=== PATIENT | male | born 1970 | race Caucasian/White ===

== ENCOUNTER 2018-09-11 10:45 | Emergency (ER) | payer SELFPAY ==
--- NOTE | 2018-09-11 10:56 | ER Report ---
History and Physical Time Seen By MD: 10:56 HPI/ROS CHIEF COMPLAINT: Shortness of breath HISTORY OF PRESENT ILLNESS: This is a 47-year-old male presents to the emergency department for shortness of breath. 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 Since moving here August 20, he's had increased shortness of breath not necessarily exertional, it is continuos however does have increased shortness of breath with ambulation. Also states that he had flulike symptoms last week. No fevers or chills today, no nausea or vomiting. Denies chest pain. No rashes. He does state that sometimes when he staking a deep breath he becomes lightheaded and sees spots but that quickly resolves, no headaches. REVIEW OF SYSTEMS: Constitutional: No fever, no chills. Eyes: No discharge. ENT: No sore throat. Cardiovascular: No chest pain, no palpitations. Respiratory: As above. Gastrointestinal: No abdominal pain, no vomiting. Genitourinary: No hematuria. Musculoskeletal: No back pain. Skin: No rashes. Neurological: As above. Allergies: Coded Allergies: Penicillins (Verified Allergy, Severe, HIVES, 09/11/18) phenobarbital (Verified Allergy, Severe, ANAPHYLAXIS, 09/11/18) Home Meds Active Scripts Albuterol Sulfate 90 Mcg/Act (PROAIR HFA 90 MCG/ACT) 8.5 Gm Hfa.aer.ad, 1-2 PUFF IH 3-4XD, #1 INHALER 0 Refills Prov:BRENNAN TRACY [facility] REGISTERED NURSE- 09/11/18 Past Medical/Surgical History The patient has a past medical and surgical history of urinary tract infection, diverticulitis. Reviewed Nurses Notes: Yes Constitutional Vital Sign - Last 24 Hours 09/11/18 09/11/18 09/11/18 09/11/18 10:45 11:02 11:06 11:15 Temp 98.3 Pulse 71 100 73 Resp 12 16 19 B/P (MAP) 144/94 (111) 144/94 126/92 (103) Pulse Ox 93 98 93 O2 Delivery Room Air Room Air Room Air 09/11/18 09/11/18 09/11/18 09/11/18 11:31 11:45 12:00 12:15 Pulse 67 71 Resp 12 16 B/P (MAP) 127/92 (104) 123/84 (97) 124/86 (99) 127/85 (99) Pulse Ox 94 94 O2 Delivery Room Air Room Air 09/11/18 09/11/18 09/11/18 09/11/18 12:45 12:48 12:48 12:50 Pulse 76 76 Resp 16 16 B/P (MAP) 124/82 (96) Pulse Ox 92 100 O2 Delivery Room Air Room Air 09/11/18 09/11/18 12:55 13:00 Pulse 83 Resp 16 B/P (MAP) 117/79 (92) Physical Exam General Appearance: The patient is alert, has no immediate need for airway protection and no signs of toxicity. Eyes: Pupils equal and round no pallor or injection. ENT, Mouth: Mucous membranes are moist. Respiratory: There are no retractions, lungs are clear to auscultation. Cardiovascular: Regular rate and rhythm, no murmurs, clicks or rubs. Gastrointestinal: Abdomen is soft and non tender, no masses, bowel sounds normal. Neurological: Alert and oriented 4. Moving all extremities. Following all commands. No focal neuro deficits. Skin: Warm and dry, no rashes. Musculoskeletal: Neck is supple non tender. Extremities are nontender, nonswollen and have full range of motion. DIFFERENTIAL DIAGNOSIS: After history and physical exam differential diagnosis was considered for shortness of breath including but not limited to pulmonary infectious process, COPD, asthma, pulmonary embolus and congestive heart failure. Medical Decision Making Data Points Result Diagram: 09/11/18 1133 09/11/18 1133 Laboratory Hematology Test 09/11/18 11:33 Red Blood Count 5.64 M/uL (4.00-5.60) Mean Corpuscular Volume 93.2 fL (80.0-96.0) Mean Corpuscular Hemoglobin 31.4 pg (26.0-33.0) Mean Corpuscular Hemoglobin Concent 33.7 g/dL (32.0-36.0) Red Cell Distribution Width 13.3 % (11.5-14.5) Mean Platelet Volume 7.8 fL (7.2-11.1) Neutrophils (%) (Auto) 67.7 % (39.4-72.5) Lymphocytes (%) (Auto) 19.0 % (17.6-49.6) Monocytes (%) (Auto) 11.4 % (4.1-12.4) Eosinophils (%) (Auto) 1.1 % (0.4-6.7) Basophils (%) (Auto) 0.8 % (0.3-1.4) Nucleated RBC Relative Count (auto) 0.0 /100WBC Neutrophils # (Auto) 5.7 K/uL (2.0-7.4) Lymphocytes # (Auto) 1.6 K/uL (1.3-3.6) Monocytes # (Auto) 1.0 K/uL (0.3-1.0) Eosinophils # (Auto) 0.1 K/uL (0.0-0.5) Basophils # (Auto) 0.1 K/uL (0.0-0.1) Nucleated RBC Absolute Count (auto) 0.00 K/uL D-Dimer Quantitative (PE/DVT) < 0.27 ug/ml (0-0.50) Sodium Level 138 mmol/L (137-145) Potassium Level 5.2 mmol/L (3.5-5.0) Chloride Level 106 mmol/L (98-107) Carbon Dioxide Level 25 mmol/L (22-30) Blood Urea Nitrogen 9 mg/dl (9-21) Creatinine 0.80 mg/dl (0.66-1.25) Glomerular Filtration Rate Calc > 60.0 Random Glucose 103 mg/dl (75-110) Calcium Level 9.6 mg/dl (8.4-10.2) Total Bilirubin 1.5 mg/dl (0.2-1.3) Aspartate Amino Transf (AST/SGOT) 49 U/L (0-35) Alanine Aminotransferase (ALT/SGPT) 66 U/L (0-56) Alkaline Phosphatase 69 U/L (0-126) Troponin I < 0.012 ng/ml Total Protein 8.6 g/dl (6.3-8.2) Albumin 4.8 g/dl (3.5-5.0) Chemistry Test 09/11/18 11:33 White Blood Count 8.4 k/uL (4.5-11.0) Red Blood Count 5.64 M/uL (4.00-5.60) Hemoglobin 17.7 g/dL (14.0-18.0) Hematocrit 52.6 % (42.0-52.0) Mean Corpuscular Volume 93.2 fL (80.0-96.0) Mean Corpuscular Hemoglobin 31.4 pg (26.0-33.0) Mean Corpuscular Hemoglobin Concent 33.7 g/dL (32.0-36.0) Red Cell Distribution Width 13.3 % (11.5-14.5) Platelet Count 305 K/uL (150-450) Mean Platelet Volume 7.8 fL (7.2-11.1) Neutrophils (%) (Auto) 67.7 % (39.4-72.5) Lymphocytes (%) (Auto) 19.0 % (17.6-49.6) Monocytes (%) (Auto) 11.4 % (4.1-12.4) Eosinophils (%) (Auto) 1.1 % (0.4-6.7) Basophils (%) (Auto) 0.8 % (0.3-1.4) Nucleated RBC Relative Count (auto) 0.0 /100WBC Neutrophils # (Auto) 5.7 K/uL (2.0-7.4) Lymphocytes # (Auto) 1.6 K/uL (1.3-3.6) Monocytes # (Auto) 1.0 K/uL (0.3-1.0) Eosinophils # (Auto) 0.1 K/uL (0.0-0.5) Basophils # (Auto) 0.1 K/uL (0.0-0.1) Nucleated RBC Absolute Count (auto) 0.00 K/uL D-Dimer Quantitative (PE/DVT) < 0.27 ug/ml (0-0.50) Glomerular Filtration Rate Calc > 60.0 Calcium Level 9.6 mg/dl (8.4-10.2) Total Bilirubin 1.5 mg/dl (0.2-1.3) Aspartate Amino Transf (AST/SGOT) 49 U/L (0-35) Alanine Aminotransferase (ALT/SGPT) 66 U/L (0-56) Alkaline Phosphatase 69 U/L (0-126) Troponin I < 0.012 ng/ml Total Protein 8.6 g/dl (6.3-8.2) Albumin 4.8 g/dl (3.5-5.0) Coagulation Test 09/11/18 11:33 D-Dimer Quantitative (PE/DVT) < 0.27 ug/ml EKG/Imaging EKG Interpretation 12 lead EKG: Time of EKG 114. Rhythm: Normal sinus rhythm, ventricular rate 71 bpm. [place]: normal QRS: normal ST segments: No ST depression or elevation identified. No previous EKGs for comparison. Imaging PATIENT NAME: Herbert Krueger : 1970 MR: [id number] V: [id number] EXAM DATE: ORDERING PHYSICIAN: BRENNAN TRACY TECHNOLOGIST: Location: [facility] - [place] Patient: Herbert Krueger : 1970 Visit/Account:[id number] Date of Sevice: 09/11/2018 CHEST PA LAT Indication: RESP DISTRESS Comparison: None. Findings: Lungs: Clear. Mediastinum/pulmonary vasculature: Heart size and pulmonary vasculature are normal. Bones/soft tissues: Normal. IMPRESSION: Clear lungs. Report Dictated By: Hasmukh Cote at 09/11/2018 12:11 PM Report E-Signed By: Hasmukh Cote at 09/11/2018 12:12 PM WSN:[id number] ED Course/Re-evaluation Clinical Indication for ER IV: Hydration, IV Access ED Course The patient was admitted to room. A history and physical were obtained. Differential diagnoses were considered. An IV was started. A CBC, CMP and troponin were obtained. A 1 L normal saline bolus was given. One albuterol nebulizer was given with relief of symptoms.CBC unremarkable, chemistries showing potassium 5.2, total bilirubin 1.5, AST 49, ALT 66, negative troponin, negative d-dimer. EKG showing normal sinus rhythm. Two-view chest x-ray negative for any acute cardiopulmonary process. I reviewed the laboratory studies and x- ray results with the patient. I did tell him that this is likely related to altitude sickness and slowly increase his activity over the next several months given self time to acclimate to this elevation. I also encouraged the patient to establish with a primary care provider and reevaluate his symptoms within 2 weeks. The patient had no other questions or concerns at this time and was disch arged home. The patient was in agreement with this plan of care. I did send the patient home with albuterol inhaler prescription. Decision to Disposition Date: Sep 11, 2018 Decision to Disposition Time: 13:02 Depart Departure Latest Vital Signs Vital Signs Date Time Temp Pulse Resp B/P (MAP) Pulse Ox O2 Delivery O2 Flow Rate FiO2 09/11/18 13:00 117/79 (92) 09/11/18 12:55 83 16 09/11/18 12:50 100 Room Air 09/11/18 11:06 98.3 Impression: Primary Impression: Shortness of breath associated with high altitude Condition: Improved Disposition: HOME OR SELF-CARE Referrals: PALLAVI HOBSON MD 2 Weeks New Scripts Albuterol Sulfate 90 Mcg/Act (PROAIR HFA 90 MCG/ACT) 8.5 Gm Hfa.aer.ad 1-2 PUFF IH 3-4XD, #1 INHALER 0 Refills Prov: BRENNAN TRACY-ROXANNE 09/11/18 Patient Instructions: Dyspnea (ED), Mountain Sickness (ED) Additional Instructions: No concerning findings on her EKG, chest x-ray or blood work today. I do believe that which were experiencing is a mild case of altitude sickness. Be sure to drink plenty of fluids as she do have was called incidental fluid loss if this elevation. Get plenty of rest. Give your body several months to acclimate to this elevation. Please establish with a primary care provider for reevaluation within the next 2 weeks. Return to the emergency department for any other concerns or worsening symptoms. Problem Qualifiers Primary Impression: Shortness of breath associated with high altitude Encounter type: initial encounter Qualified Codes: T70.29XA - Other effects of high altitude, initial encounter BRENNAN TRACY-BC Sep 11, 2018 10:56
[2018-09-11] MEDS ORDERED: NS(*) 0.9% 1000 ML BAG 1,000 ML IV ONE (11:08)
[2018-09-11 11:42] LABS: PLATELET COUNT, AUTOMATED 305 K/uL (150-450)
--- NOTE | 2018-09-11 12:16 | RADIOLOGY IMAGING REPORT ---
FACILITY: [facility] - [place] PATIENT NAME: Herbert Krueger : 1970 MR: [id number] V: [id number] EXAM DATE: ORDERING PHYSICIAN: BRENNAN TRACY TECHNOLOGIST: Location: [facility] Patient: Herbert Krueger : 1970 Visit/Account:[id number] Date of Sevice: 09/11/2018 CHEST PA LAT Indication: RESP DISTRESS Comparison: None. Findings: Lungs: Clear. Mediastinum/pulmonary vasculature: Heart size and pulmonary vasculature are normal. Bones/soft tissues: Normal. IMPRESSION: Clear lungs. Report Dictated By: Hasmukh Cote at 09/11/2018 12:11 PM Report E-Signed By: Hasmukh Cote at 09/11/2018 12:12 PM WSN:[id number]
[2018-09-11] MEDS ORDERED: ALBUTEROL 2.5 MG/3 ML NEB NEB ONE (12:30)
--- NOTE | 2018-09-11 12:59 | EKG ---
FACILITY: [facility] - [place] PATIENT NAME: POLLY MUKHERJEE : [id number] MR: [id number] V: [id number] EXAM DATE: ORDERING PHYSICIAN: BRENNAN TRACY TECHNOLOGIST: ABILIO Test Reason : SOB Blood Pressure : / mmHG Vent. Rate : 071 BPM Atrial Rate : 071 BPM P-R Int : 162 ms QRS Dur : 092 ms QT Int : 416 ms P-R-T Axes : 039 079 061 degrees QTc Int : 452 ms Sinus rhythm Nonspecific ST findings No previous ECGs available Confirmed by ANTONIO AJ ([id number] on 09/11/2018 4:27:26 PM Referred By: JUNE Confirmed By:ANTOINO AJ
[2018-09-11 13:00] VITALS: BP 117/79
[2018-09-11] MEDS ORDERED: ALBU8.5H IH (13:02)
== END 2018-09-11 13:08 | disposition home or self-care (01) ==
LOC: ER 11:09
DX: T70.29XA Other effects of high altitude, initial encounter (principal)
CPT/HCPCS: 71046; 84484; 85025; 85379; 93005; 94640; 96360; 99284; J7030; J7613; 82040; 82247; 82310; 82374; 82435; 82565; 82947; 84075; 84132; 84155; 84295; 84450; 84460; 84520